=== PATIENT | male | born 1965 | race Caucasian/White ===

== ENCOUNTER 2020-06-17 20:01 | Emergency (ER) | payer MEDICAID, SELFPAY ==
--- NOTE | 2020-06-17 19:53 | ECG_ITS ---
APPROVED REPORT Exam: Resting ECG HR:66 bpm ECG Measurements Heart Rate 66 AXES MO 168 P 48 QRSd 88 QRS 34 QT 408 T 46 QTc 427 <Conclusion> Sinus rhythm with premature atrial complexes Otherwise normal ECG Electronically signed by : Matthew Acosta, 06/18/2020 13:54:48
[2020-06-17 20:02] VITALS: BP 196/97; PULSE 77; RESP 16; TEMP 36.6; O2SAT 97; BMI 28.0
--- NOTE | 2020-06-17 20:12 | XR_ITS ---
PROCEDURE: XR CHEST 2V CLINICAL HISTORY: chest tightness COMPARISON: No exams were available for comparison FINDINGS: The cardiomediastinal silhouette and pulmonary vascularity are within normal limits. The lungs are clear without infiltrates, suspicious nodules, or pleural effusions. There is a neurostimulator device on the right projecting toward the neck. No acute bony findings. IMPRESSION: No acute findings. Dictated by: Pako Andujar MD 06/17/2020 22:17 Pako Andujar MD in [place] 06/17/2020 22:17
[2020-06-17 20:16] VITALS: BP 164/78; PULSE 64; RESP 18; O2SAT 95
[2020-06-17 20:19] LABS: Basophils # 0.1 K/mm3 (0-0.2); Basophils % 0.9 % (0.1-2.0); Chloride 101 mmol/L (98-107); Eosinophils # 0.2 K/mm3 (0.0-0.4); Eosinophils % 3.5 % (0.1-12.0); Hematocrit 46.1 % (42.0-52.0); Hemoglobin 16.2 g/dL (14.1-18.0); Lymphocytes # 1.1 K/mm3 (0.7-4.5); Lymphocytes % 19.8 % (10-50); Mean Corpuscular HGB Conc 35.1 g/dL (31.8-35.4); Mean Corpuscular Hemoglobin 29.1 pg (27.0-31.2); Mean Platelet Volume 8.6 fl (7.4-10.4); Monocytes # 0.5 K/mm3 (0.1-1.0); Monocytes % 9.3 % (1.7-9.3); Neutrophils # 3.6 K/mm3 (1.8-7.8); Neutrophils % 66.5 % (37.0-80.0); Platelet Count 134 K/mm3 (142-424); Potassium 4.4 mmoL/L (3.5-5.1); Red Blood Count 5.56 M/mm3 (4.60-6.20); Red Cell Distribution Width 13.8 % (11.5-17.5); Sodium 139 mmol/L (136-145); White Blood Count 5.4 K/mm3 (4.8-10.8)
[2020-06-17 20:22] LABS: Anion Gap 11.4 mEq/L (5-15); Blood Urea Nitrogen 20 mg/dl (9-20); Carbon Dioxide 31 mmol/L (22.0-30.0); Creatinine Clearance Estimated 76 mL/min (50-200); Estimated Glomerular Filt Rate 57 ml/min (>60); GFR (African American) 69 ML/MIN (>60)
[2020-06-17 20:23] LABS: Calcium 9.6 mg/dl (8.4-10.2); Glucose 134 mg/dl (74-100)
[2020-06-17 20:40] LABS: Troponin I < 0.01 ng/ml (0.00-0.034)
[2020-06-17 20:43] VITALS: BP 131/68; PULSE 65; RESP 18; O2SAT 94
[2020-06-17 20:45] LABS: Strep Scrn Group A (Rapid) Negative (Negative)
--- NOTE | 2020-06-17 21:13 | [facility].EDCP ---
ED Disposition Clinical Impression: Atypical chest pain Disposition: Home, Self-Care Condition on Discharge: Good Instructions: DI for Atypical Chest Pain Additional Instructions: see pcp for follow up Prescriptions: Azithromycin [Zithromax 250mg tab] 250 mg PO DIRECTED #6 tab Prescription Printed Referrals: Nathan Lyons [Primary Care Provider] - - Critical Care Critical Care Time: No Attestation: On 06/17/20, the high probability of a clinically significant, sudden or life threatening deterioration of the following system(s) required my full and direct attention, intervention and personal management. The time I documented below is in addition to time spent performing reported procedures but includes the following listed in this critical care notation. Medical Decision Making - Medical Records Medical records reviewed: Yes: I reviewed the patient's medical records. - Dante Inquiry Pt receiving controlled substance: No Vital Signs: 06/17/20 20:02 06/17/20 20:16 06/17/20 20:43 Temperature 97.9 F Temperature Source Oral Pulse Rate [Left Radial] 77 64 65 Respiratory Rate 16 18 18 Blood Pressure [Right Arm] 196/97 H 164/78 H 131/68 Blood Pressure Mean [Right Arm] 130 106 89 Blood Pressure Source [Right Arm] Automatic Cuff Blood Pressure Position [Right Arm] Sitting 02 Sat by Pulse Oximetry 97 95 94 L Oxygen Delivery Method Room Air 06/17/20 21:29 Temperature Temperature Source Pulse Rate [Left Radial] 57 L Respiratory Rate 18 Blood Pressure [Right Arm] 146/84 H Blood Pressure Mean [Right Arm] 104 Blood Pressure Source [Right Arm] Blood Pressure Position [Right Arm] 02 Sat by Pulse Oximetry 98 Oxygen Delivery Method - Lab Data Lab results reviewed: Yes: I reviewed the patient's lab results. Lab Results 06/17/20 20:00: WBC 5.4, RBC 5.56, Hgb 16.2, Hct 46.1, MCV 83.0, MCH 29.1, MCHC 35.1, RDW 13.8, Plt Count 134 L, MPV 8.6, Neut % (Auto) 66.5, Lymph % (Auto) 19.8, [place] % (Auto) 9.3, Eos % (Auto) 3.5, Baso % (Auto) 0.9, Neut # (Auto) 3.6, Lymph # (Auto) 1.1, [place] # (Auto) 0.5, Eos # (Auto) 0.2, Baso # (Auto) 0.1 06/17/20 20:00: Sodium 139, Potassium 4.4, Chloride 101, Carbon Dioxide 31 H, Anion Gap 11.4, BUN 20, Creatinine 1.30 H, Estimated Creat Clear 76, Estimated GFR 57 L, Est GFR ( Amer) 69, Glucose 134 H, Calcium 9.6, Troponin I < 0.01 06/17/20 20:29: Influenza Type A Ag Negative, Influenza Type B Ag Negative 06/17/20 20:29: Group A Strep Rapid Negative Result diagrams: 06/17/20 20:00 06/17/20 20:00 Orders (Tests/Meds): ED MEDICATIONS Generic Name Dose Route Start Last Admin Trade Name Freq PRN Reason Stop Dose Admin Sodium Chloride 1,000 mls @ 999 mls/hr 06/17/20 20:30 06/17/20 20:20 Sod Chlor 0.9% 1000ml Bag IV 06/17/20 21:30 999 mls/hr .Q1H1M SHAI Administration Discontinued Medications Generic Name Dose Route Start Last Admin Trade Name Freq PRN Reason Stop Dose Admin Aspirin 324 mg 06/17/20 20:16 06/17/20 20:19 Aspirin 81mg Chewable Tablet PO 06/17/20 20:17 324 mg ONCE ONE Administration Nitroglycerin 0.4 mg 06/17/20 20:16 06/17/20 20:18 Nitrostat 0.4mg Sl Tablet SL 06/17/20 20:17 0.4 mg ONCE ONE Administration ORDERS Category Date Time Status XR chest 2V Stat Exams 06/17/20 20:12 Taken Covid-19 Nasal PCR Sendout E[facility] Stat Lab 06/17/20 21:12 Ordered Troponin I Q3H Lab 06/17/20 23:15 Ordered Troponin I Q3H Lab 06/18/20 02:15 Ordered Strep Screen Confirmation Stat Micro 06/17/20 20:29 Received - Radiology Data #1 Image(s): Chest Image Reviewed: Yes I reviewed the patient's radiology image Preliminary Findings: Normal/NAD - ECG Data Tracing #1 Normal Sinus Rhythm: Yes Ischemic changes: non-specific ST-T wave changes Chest Pain HPI - General Chief Complaint: Chest Pain Stated Complaint: chest tightness, sore throat Time Seen by Provider: 06/17/20 20:30 Mode of Ar
[2020-06-17 21:29] VITALS: BP 146/84; PULSE 57; RESP 18; O2SAT 98
[2020-06-17 21:35] VITALS: BP 146/84; PULSE 53; RESP 16; TEMP 36.2; O2SAT 96
[2020-06-19 15:34] LABS: Covid-19 Nasal PCR Sendout Lex Not Detected
== END 2020-06-17 21:36 | disposition home or self-care (01) ==
PROVIDERS: Emergency Provider Emergency Medicine; PCP Family Medicine
DX: R07.89 Other chest pain (principal); Z03.818 Encounter for observation for suspected exposure to other biological agents ruled out
CPT/HCPCS: 71046; 80048; 84484; 85025; 87275; 87276; 87430; 93005; 96365; 99284; U0004

== ENCOUNTER 2023-10-11 10:59 | Outpatient (CLI) | payer BC, SELFPAY ==
[2023-10-11 11:10] VITALS: BMI 27.3
--- NOTE | 2023-10-11 11:11 | PC.NURSE ---
1111-collected labs via venipuncture stick with butterfly needle in left ac;will wait on results for possible therapeutic phlebotomy if hct > 45
[2023-10-11 11:26] LABS: Hematocrit 48.2 % (42.0-52.0); Hemoglobin 16.1 g/dL (14.1-18.0)
[2023-10-11 11:40] VITALS: BP 180/72; PULSE 83; RESP 18; O2SAT 97
[2023-10-11 11:55] VITALS: BP 179/72; PULSE 79; RESP 18; O2SAT 98
== END 2023-10-11 11:55 | disposition home or self-care (01) ==
PROVIDERS: PCP Family Medicine; Visit Provider Family Medicine
DX: R79.1 Abnormal coagulation profile (principal)
CPT/HCPCS: 36415; 85014; 85018; 99195

== ENCOUNTER 2024-01-11 08:07 | Outpatient (CLI) | payer BC, SELFPAY ==
[2024-01-11 08:18] VITALS: BMI 27.3
--- NOTE | 2024-01-11 08:29 | PC.NURSE ---
01/11/24 0820 pt presents today to have labs drawn for possible phlebotomy. Blood drawn using butterfly needle to pt's rt ac x 1 stick per Olga Spicer LPN-nurse preceptee under my direct supervision. Blood drawn for labs and needle withdrawn-site secured with 2x2 gauze and coban. Will await results of labs to determine poc.
[2024-01-11 08:30] LABS: Hematocrit 49.1 % (42.0-52.0); Hemoglobin 15.8 g/dL (14.1-18.0)
[2024-01-11 08:48] VITALS: BP 143/67; PULSE 59; RESP 20; TEMP 36.7; O2SAT 99
[2024-01-11 09:02] VITALS: BP 149/67; PULSE 63; RESP 20; O2SAT 99
== END 2024-01-11 09:05 | disposition home or self-care (01) ==
LOC: INF 08:07
PROVIDERS: PCP Family Medicine; Visit Provider Family Medicine
DX: E83.119 Hemochromatosis, unspecified (principal)
CPT/HCPCS: 36415; 85014; 85018; 99195

== ENCOUNTER 2024-02-14 08:28 | Outpatient (CLI) | payer BC, SELFPAY ==
[2024-02-14 08:38] VITALS: BMI 27.3
--- NOTE | 2024-02-14 08:48 | PC.NURSE ---
0807 Pt presents for lab check and possible phlebotomy. Venipuncture performed using butterfly access needle to pts rt ac x 1 stick, blood drawn for labs as ordered-needle withdrawn and site secured with 2x2 gauze and coban. Pt will await results to determine if phlebotomy is needed.
[2024-02-14 08:53] LABS: Hematocrit 48.6 % (42.0-52.0); Hemoglobin 15.7 g/dL (14.1-18.0)
[2024-02-14 09:05] VITALS: BP 158/77; PULSE 66; RESP 18; TEMP 36.7; O2SAT 98
[2024-02-14 09:26] VITALS: BP 158/66; PULSE 69; RESP 20; O2SAT 98
== END 2024-02-14 09:28 | disposition home or self-care (01) ==
PROVIDERS: PCP Family Medicine; Visit Provider Family Medicine
DX: R79.1 Abnormal coagulation profile (principal)
CPT/HCPCS: 36415; 85014; 85018; 99195

== ENCOUNTER 2024-05-08 08:12 | Outpatient (CLI) | payer BC, SELFPAY ==
[2024-05-08 08:15] VITALS: BMI 27.3
--- NOTE | 2024-05-08 08:20 | PC.NURSE ---
0820-collected labs via venipuncture stick in right ac with butterfly needle for possible therapeutic phlebotomy if HCT >44; pt to wait on results
[2024-05-08 08:33] LABS: Hemoglobin 16.2 g/dL (14.1-18.0)
[2024-05-08 08:50] VITALS: BP 176/79; PULSE 64; RESP 18; O2SAT 96
[2024-05-08 09:05] VITALS: BP 138/78; PULSE 65; RESP 18; O2SAT 97
== END 2024-05-08 09:05 | disposition home or self-care (01) ==
LOC: INF 08:13
PROVIDERS: PCP Family Medicine; Visit Provider Family Medicine
DX: E83.119 Hemochromatosis, unspecified (principal)
CPT/HCPCS: 36415; 85014; 85018; 99195

== ENCOUNTER 2024-07-04 10:11 | Outpatient (CLI) | payer BC, SELFPAY ==
[2024-07-04 10:20] VITALS: BMI 27.3
[2024-07-04 10:35] LABS: Hematocrit 50.8 % (42.0-52.0); Hemoglobin 16.8 g/dL (14.1-18.0)
--- NOTE | 2024-07-04 11:07 | PC.NURSE ---
07/04/24 1025 Venipuncture performed to pt's rt ac x 1 stick, blood drawn for labs. Needle withdrawn and site secured with 2x2 gauze and coban. Will await results to determine if phlebotomy is needed today.
--- NOTE | 2024-07-04 11:09 | PC.NURSE ---
07/04/24 1050 Lab results back and hct-50.8, greater than 44 and phlebotomy is needed. Awaiting lab staff to perform procedure.
[2024-07-04 11:15] VITALS: BP 174/79; PULSE 63; RESP 18; TEMP 36.8; O2SAT 99
[2024-07-04 11:43] VITALS: BP 193/86; PULSE 67; RESP 18; O2SAT 96
== END 2024-07-04 11:43 | disposition home or self-care (01) ==
LOC: INF 10:12
PROVIDERS: PCP Family Medicine; Visit Provider Family Medicine
DX: E83.119 Hemochromatosis, unspecified (principal)
CPT/HCPCS: 36415; 85014; 85018; 99195

== ENCOUNTER 2024-10-24 08:37 | Outpatient (CLI) | payer BC, SELFPAY ==
[2024-10-24 08:38] VITALS: BMI 27.3
--- NOTE | 2024-10-24 08:54 | PC.NURSE ---
Pt presents for labs and possible phlebotomy. Venipuncture performed using a butterfly access needle x 1 stick to pt's lt ac and blood drawn. Needle withdrawn and site secured with 2x2 gauze and coban. Will await results to determine if phlebotomy is needed.
[2024-10-24 08:59] LABS: Hematocrit 48.2 % (42.0-52.0)
[2024-10-24 09:15] VITALS: BP 166/78; PULSE 65; RESP 20; TEMP 36.7; O2SAT 98
[2024-10-24 09:33] VITALS: BP 165/72; PULSE 81; RESP 20; O2SAT 98
== END 2024-10-24 09:35 | disposition home or self-care (01) ==
LOC: INF 08:37
PROVIDERS: PCP Family Medicine; Visit Provider Family Medicine
DX: R07.9 Chest pain, unspecified (principal)
CPT/HCPCS: 36415; 85014; 85018; 99195